=== PATIENT | female | born 1980 | race Caucasian/White ===

== ENCOUNTER 2022-05-07 18:00 | Emergency (ER) | payer BC, SELFPAY ==
--- NOTE | 2022-05-07 18:15 | ED_ITS ---
HPI - Skin/Abscess/Foreign Bdy General Chief complaint: Skin/Abscess/Foreign Body <Elba Sorenson CNP - Last Filed: 05/07/22 18:28> Stated complaint: ?Shingles <Elba Sorenson CNP - Last Filed: 05/07/22 18:28> Time Seen by Provider: 05/07/22 19:25 <Elba Sorenson CNP - Last Filed: 05/07/22 18:28> Source: patient and family <Александр Landaverde DO - Last Filed: 05/07/22 19:43> Mode of arrival: ambulatory <Александр Landaverde DO - Last Filed: 05/07/22 19:43> Limitations: no limitations <Александр Landaverde DO - Last Filed: 05/07/22 19:43> History of Present Illness HPI narrative: RA 41-year-old female went to walk-in clinic today was sent here for herpe s affecting her right eye. <Александр Landaverde DO - Last Filed: 05/07/22 19:43> MD complaint: rash <Александр Landaverde DO - Last Filed: 05/07/22 19:43> Related Data Home medications: Previous Rx's Medication Instructions Recorded prednisone 20 mg tablet 60 mg PO DAILY Asthma 5 days #15 05/07/22 tabs valacyclovir 1 gram tablet 1,000 mg PO BID #14 tabs 05/07/22 (Valtrex) <Elba Sorenson CNP - Last Filed: 05/07/22 18:28> Allergies/Adverse reactions: Allergies Allergy/AdvReac Type Severity Reaction Status Date / Time erythromycin base Allergy Unknown Unknown Verified 05/07/22 18:29 Penicillins Allergy Unknown Unknown Verified 05/07/22 18:29 <Elba Sorenson CNP - Last Filed: 05/07/22 18:28> Physical Exam Vital Signs: Vital Signs: Last Vital Signs Temp 98.2 F 05/07/22 18:27 Pulse 67 05/07/22 18:27 Resp 20 05/07/22 18:27 BP 122/68 05/07/22 18:27 Pulse Ox 98 05/07/22 18:27 O2 Del Method 05/07/22 18:27 BMI result Body Mass Index 30.9 <Elba Sorenson CNP - Last Filed: 05/07/22 18:28> Vital Signs: Last Vital Signs Temp 98.2 F 05/07/22 18:27 Pulse 67 05/07/22 18:27 Resp 20 05/07/22 18:27 BP 122/68 05/07/22 18:27 Pulse Ox 98 05/07/22 18:27 O2 Del Method 05/07/22 18:27 BMI result Body Mass Index 30.9 <Александр Landaverde DO - Last Filed: 05/07/22 19:43> Course Course Course Narrative: This is an RME: Additional HPI, ROS, PE not included below will be deferred to primary provider. Patient is a 41-year-old female presents to the emergency department for evaluation. Sent from [facility], concern for shingles to right side of face, right shoulder and with ? ocular involvement. Denies vision changes, painful eye movements. Onset 2 days ago. Plan: visual acuity, further eye exaimination, please back in waiting room pending bed availability. <Elba Sorenson CNP - Last Filed: 05/07/22 18:28> Medical Decision Making Medical Decision Making MDM Narrative: Calls me denied this hurts the case with Ophthalmology who will see the patient tomorrow visual acuity is normal here he did want pressure check which held at this time. Pressure is normal at 11 Visual acuity is 20/20 corrected. <Александр Landaverde DO - Last Filed: 05/07/22 19:43> Differential Diagnosis Differential Diagnoses: The differential diagnosis associated with the presentation includes <Александр Landaverde DO - Last Filed: 05/07/22 19:43> HSV keratitis <Александр Landaverde DO - Last Filed: 05/07/22 19:43> Consult Healthcare Provider Management of the patient was discussed with: School Superintendent <Александр Landaverde DO - Last Filed: 05/07/22 19:43> I spoke with Dr. Torres about the patient he will see the patient in the office. He will see her in the office. 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 Please follow up tomorrow. You might need more eye drops. <Elba Sorenson CNP - Last Filed: 05/07/22 18:28> Prescriptions: New prednisone 20 mg tablet 60 mg PO DAILY 5 Days Qty: 15 0RF valacyclovir [Valtrex] 1 gram tablet 1,000 mg PO BID Qty: 14 0RF <Elba Sorenson CNP - Last Filed: 05/07/22 18:28> Referrals: Scout Torres [Physician] - (Please call to follow up tomorrow.) <Elba Sorenson CNP - Last Filed: 05/07/22 18:28>
[2022-05-07 18:27] VITALS: BP 122/68; PULSE 67; RESP 20; TEMP 36.8; O2SAT 98; BMI 30.9
[2022-05-07] MEDS: predniSONE 20 MG TABLET 60 MG PO (19:48)
[2022-05-07] MEDS: valACYclovir HCL 1,000 MG TABLET 1000 MG PO (19:48)
== END 2022-05-07 20:00 | disposition home or self-care (01) ==
LOC: HO.ED 19:59
PROVIDERS: Emergency Provider Student in an Organized Health Care Education/Training Program; PCP Physician Assistant
DX: B00.52 Herpesviral keratitis (principal); H57.11 Ocular pain, right eye
CPT/HCPCS: 99282; 99283